=== PATIENT | female | born 1965 | race Asian ===

== ENCOUNTER 2018-12-01 18:04 | Emergency (ER) | payer OTHER ==
[~2018-12-01] VITALS: Ht 165.1 cm; Wt 63.5 kg
[2018-12-01 18:11] VITALS: Ht 165.1 cm; Wt 63.5 kg
[2018-12-01 21:22] VITALS: BP 120/88
== END 2018-12-01 21:22 | disposition home or self-care (01) ==
LOC: ED 18:04
DX: S40.212A Abrasion of left shoulder, initial encounter (principal); W55.03XA Scratched by cat, initial encounter; Y93.89 Activity, other specified; Y92.89 Other specified places as the place of occurrence of the external cause; Y99.8 Other external cause status; Z85.3 Personal history of malignant neoplasm of breast
CPT/HCPCS: 90715

== ENCOUNTER → 2020-05-23 | Outpatient (CLI) | payer OTHER, SELFPAY ==
[~2020-05-23] VITALS: Ht 162.6 cm; Wt 59.0 kg
[2020-05-23 15:05] LABS: BASOPHIL % 0.5 % (0-2); PLATELET COUNT 213 x10^3mcL (130-400); RED CELL DISTRIBUTION WIDTH 12.3 % (11.5-14.5)
[2020-05-23 15:11] LABS: CALCIUM 8.5 mg/dL (8.5-10.1); CHLORIDE SERUM 102 mmol/L (98-107); CREATININE SERUM 0.9 mg/dL (0.6-1.0); GFR1 > 60 mL/min; GLUCOSE SERUM 191 mg/dL (74-106); POTASSIUM SERUM 3.4 mmol/L (3.5-5.1); SODIUM SERUM 137 mmol/L (136-145)
== END | disposition home or self-care (01) ==
LOC: LB 10:00 → OR 05-28 08:30 → EDSTATUS 05-28 08:30
PROVIDERS: ATTEND Obstetrics & Gynecology
DX: N92.1 Excessive and frequent menstruation with irregular cycle (principal)
CPT/HCPCS: U0003